=== PATIENT | female | born 1985 | race Caucasian/White ===

== ENCOUNTER 2018-11-19 19:29 | Emergency (ER) | payer OTHER, SELFPAY ==
[~2018-11-19] VITALS: Ht 157.5 cm; Wt 57.7 kg
[2018-11-19 19:30] VITALS: BP 126/85
[2018-11-20] MEDS ORDERED: MOBI4TAB PO (14:45)
[2018-11-20] MEDS ORDERED: ZANA4TAB PO (14:45)
== END 2018-11-19 21:30 | disposition left against medical advice (07) ==
LOC: M ED 19:29
DX: R07.9 Chest pain, unspecified (principal); Z53.21 Procedure and treatment not carried out due to patient leaving prior to being seen by health care provider

== ENCOUNTER 2018-11-20 13:56 | Emergency (ER) | payer OTHER, SELFPAY ==
[~2018-11-20] VITALS: Ht 157.5 cm; Wt 57.3 kg
[2018-11-20 13:58] VITALS: BP 104/57
[2018-11-20] MEDS ORDERED: ZANA4TAB PO (14:45)
[2018-11-20] MEDS ORDERED: MOBI4TAB PO (14:45)
[2018-11-20] MEDS ORDERED: NAPROXEN 250 MG TAB PO ONE (14:45)
== END 2018-11-20 15:06 | disposition home or self-care (01) ==
LOC: M ED 13:56
DX: R07.89 Other chest pain (principal)